=== PATIENT | female | born 1945 | race Caucasian/White ===

== ENCOUNTER 2017-11-24 00:52 | Emergency (ER) | payer OTHER ==
[2017-11-24] MEDS: DEXAMETHASONE 10 MG/ML 1 ML INJ IM (07:33)
[2017-11-24] MEDS: ACETAMINOPHEN 500 MG TAB PO (07:33)
[2017-11-24] MEDS: IPRATROPIUM (NEB) 0.5 MG/2.5 ML AMP HHN (08:06)
[2017-11-24] MEDS: ALBUTEROL 0.083% (NEB) 2.5 MG/3 ML AMP HHN (08:06)
== END 2017-11-24 09:40 | disposition home or self-care (01) ==
LOC: FTE 00:52
DX: J20.9 Acute bronchitis, unspecified (principal); I10 Essential (primary) hypertension; Z79.82 Long term (current) use of aspirin
CPT/HCPCS: 71020; 93005; 94664; 96372; 99284-25